=== PATIENT | female | born 1970 | race Caucasian/White ===

== ENCOUNTER → 2017-10-13 | Outpatient (CLI) | payer BC ==
--- NOTE | 2017-10-14 11:16 | BD ---
EXAMINATION TYPE: Axial Bone Density DATE OF EXAM: 10/13/2017 COMPARISON: NONE CLINICAL HISTORY: Height: 5 FT 4 IN Weight: 176 FRAX RISK QUESTIONS: Family History (Parent hip fracture): NO History of Fracture in Adulthood: YES RISK FACTORS HISTORY OF: Active: YES Postmenopausal woman: NOT CONFIRMED ABLASION 2011 MEDICATIONS: Additional Medications: NONE Additional History: EXAM MEASUREMENTS: Bone mineral densitometry was performed using the MyFit System. Bone mineral density as measured about the Lumbar spine is: ----- L1-L4(G/cm2): 1.272 T Score Values are as follows: ----- L2: 0.8 ----- L3: 0.8 ----- L4: 0.3 ----- L1-L4: 0.8 BASELINE Bone mineral density about the R hip (g/cm2): 0.978 Bone mineral density about the L hip (g/cm2): 0.997 T Score values are as follows: -----R Neck: -0.4 -----L Neck: -0.3 -----R Total: 0.0 -----L Total: 0.1 BASELINE IMPRESSION: Normal (Values between +1 and -1 indicate normal bone mass). Consider repeating this study in 5 years or sooner if there is some new clinical indication. NOTE: T-SCORE=SD OF THE YOUNG ADULT MEAN.
== END | disposition home or self-care (01) ==
LOC: RADBDWWP 15:56
PROVIDERS: ATTEND Obstetrics & Gynecology
DX: Z13.820 Encounter for screening for osteoporosis (principal)
CPT/HCPCS: 77080

== ENCOUNTER 2017-11-03 06:55 | Day surgery (SDC) | payer BC ==
[~2017-11-03 06:55] MED LIST: DEXAMETHASONE SOD PHOSPHATE 10 MG/ML 1 ML VIAL IV ONE; LIDOCAINE 1% 20 ML VIAL (10MG/ML) FOR IV START INTRADERMA PRN; MORPHINE SULFATE 2 MG/ML SYRINGE IV PRN; ONDANSETRON 4 MG/2 ML VIAL IVP ONE; Pre Op ABX Message 1 EACH MISC MISCELLANE ONE; SCOPOLAMINE 1.5MG/72HR PATCH TRANSDERM ONE
[2017-11-03] MEDS: LACTATED RINGERS 1,000 ML IV SCH (08:45)
[2017-11-03 08:46] VITALS: RESP 16
[2017-11-03] MEDS ORDERED: PROPOFOL 10 MG/ML 20 ML VIAL IV ONE (09:26)
[2017-11-03] MEDS ORDERED: LIDOCAINE 1% INJ 10MG/ML (20 ML MDV) ONE (09:26)
[2017-11-03] MEDS ORDERED: fentaNYL (PF) 50 MCG/ML 2 ML AMP ONE (09:26)
[2017-11-03] MEDS ORDERED: MIDAZOLAM 2 MG/2 ML VIAL ONE (09:26)
[2017-11-03] MEDS ORDERED: SODIUM CHLORIDE 0.9% 50 ML with GENTAMICIN 80 MG IV ONE ×2 (09:41)
[2017-11-03] MEDS ORDERED: VASOPRESSIN 20 UNIT/ML 1 ML VIAL SQ ONE (09:46)
[2017-11-03] MEDS ORDERED: GENTAMICIN 80 MG in SODIUM CHLORIDE 0.9% 500 ML IRRIGATION ONE (09:48)
[2017-11-03] MEDS ORDERED: BACITRACIN 500 UNIT/GM OINT 28.4 GM TUBE TOPICAL ONE (09:56)
--- NOTE | 2017-11-03 10:13 | P.OP ---
Date of Procedure: 11/03/17 Preoperative Diagnosis: Stress urinary incontinence Postoperative Diagnosis: Same Procedure(s) Performed: Trans-obturator tape with cystoscopy Anesthesia: ESTELA Surgeon: Bill Villegas Estimated Blood Loss (ml): 100 Pathology: none sent Condition: stable Disposition: PACU Indications for Procedure: The patient is a 47-year-old female with documented stress incontinence on physical examination and urodynamics. She comes for a trans-obturator tape Description of Procedure: The patient is brought to the operating suite she is given a general endotracheal anesthesia on the operating table. She's placed lithotomy position with a sterile prep and drape. The labia are sewn laterally to 0 silk. A Champion catheters introduced sterilely. A vaginal speculum was placed. The anterior vaginal mucosa was elevated off the submucosa with 10 mL of the mixture of 20 units of Pitressin and 200 mg of saline. A midline suburethral incision is made. I dissect lateral the bladder neck bilaterally. I then make 2 incisions in the inguinal crease at the level of the clitoris bilaterally. I passed the AP introducers through these incisions into the obturator foramen around the issue pubic ramus into the vaginal space bilaterally. I then remove the Champion and perform cystoscopy to make sure there is no bladder injury and there is none. I reintroduced the Champion. I then attached the grafted introducers and pull the graft back through the obturator foramen. The graft sit nicely in the mid urethra. The plastic sheathing is removed from the graft. The vaginal incisions closed with 3-0 Vicryl. I excised redundant graft at the inguinal incision and close them with 4-0 Vicryl. The urine remains clear. A vaginal packing is placed. The labial stitches removed. The patient is awakened and returned recovery room good condition. Blood loss is a proximally 100 mL.
[2017-11-03] MEDS: KETOROLAC 30 MG/ML 1 ML VIAL IVP PRN (11:13)
[2017-11-03] MEDS: DEXTROSE 5%-0.45% NACL 1,000 ML IV SCH ×2 (11:17→23:06)
[2017-11-03 15:55] VITALS: TEMP 97.9
[2017-11-04] MEDS: LACTATED RINGERS 1,000 ML IV SCH (00:53)
--- NOTE | 2017-11-04 06:49 | P.DS ---
Providers Attending physician: Bill Villegas Primary care physician: [facility] Course: The patient was admitted to the hospital 11/03/2017 for a trans-obturator tape for her stress incontinence. She did well. Her pain was controlled. Her urine is clear this morning. She is comfortable. She is tolerating a regular diet. Her vaginal packing and catheter will be removed. If she voids okay she' ll be discharged home. She'll be given a small prescription of Lindsay for pain. She'll follow-up in the office in one week. Postoperative instructions have been given. She's been instructed to call with any issues. Patient Condition at Discharge: Good Plan - Discharge Summary Discharge Rx Participant: No New Discharge Prescriptions: New HYDROcodone/APAP 5-325MG [Lindsay 5-325] 1 tab PO Q6HR PRN 3 Days #12 tab PRN Reason: Pain No Action Loratadine [Claritin] 10 mg PO DAILY PRN PRN Reason: Allergy Symptoms Turmeric Root Extract [Turmeric] 500 mg PO DAILY Magnesium Oxide 400 mg PO DAILY Cholecalciferol [Vitamin D3] 2,000 unit PO DAILY Michael/D3/Mag11/Zinc/Circuit Recorder/Luis/Bor [Caltrate 600+D Plus Tablet] 2 each PO DAILY Discharge Medication List Michael/D3/Mag11/Zinc/Circuit Recorder/Luis/Bor [Caltrate 600+D Plus Tablet] 2 each PO DAILY [History] Cholecalciferol [Vitamin D3] 2,000 unit PO DAILY 10/27/17 [History] Loratadine [Claritin] 10 mg PO DAILY PRN 10/27/17 [History] Magnesium Oxide 400 mg PO DAILY 10/27/17 [History] Turmeric Root Extract [Turmeric] 500 mg PO DAILY 10/27/17 [History] HYDROcodone/APAP 5-325MG [Lindsay 5-325] 1 tab PO Q6HR PRN 3 Days #12 tab [Rx] Follow up Appointment(s)/Referral(s): Bill Villegas MD [STAFF PHYSICIAN] - 1 Week Discharge Disposition: HOME SELF-CARE
[2017-11-04 08:03] VITALS: BP 108/56; PULSE 70
[2017-11-04] MEDS: KETOROLAC 30 MG/ML 1 ML VIAL IVP PRN (08:25)
== END 2017-11-04 11:30 | disposition home or self-care (01) ==
LOC: OR 06:55 → 3OBS 10:25 → OR 11-04 11:30
PROVIDERS: ATTEND Urology
DX: N39.3 Stress incontinence (female) (male) (principal); E55.9 Vitamin D deficiency, unspecified; G43.909 Migraine, unspecified, not intractable, without status migrainosus; Z79.899 Other long term (current) drug therapy; Z88.1 Allergy status to other antibiotic agents; Z88.0 Allergy status to penicillin; Z87.442 Personal history of urinary calculi; Z87.891 Personal history of nicotine dependence
CPT/HCPCS: 57288; C1771; J2250; J1580; J1100; J2405; J2001; J3010; J1885 ×2; J2704

== ENCOUNTER → 2018-05-18 | Outpatient (CLI) | payer BC ==
[2018-05-18 14:45] LABS: Basophils # (A) 0.1 k/uL (0-0.2); Basophils % (A) 1 %; Eosinophils # (A) 0.3 k/uL (0-0.7); Eosinophils % (A) 4 %; HCT 42.1 % (34.0-46.0); HGB 13.3 gm/dL (11.4-16.0); Lymphocytes # (A) 2.9 k/uL (1.0-4.8); Lymphocytes % (A) 38 %; MCH 29.3 pg (25.0-35.0); MCHC 31.6 g/dL (31.0-37.0); MCV 92.7 fL (80.0-100.0); Mean Platelet Volume 6.4; Monocytes # (A) 0.5 k/uL (0-1.0); Monocytes % (A) 7 %; Neutrophils # (A) 3.7 k/uL (1.3-7.7); Neutrophils % (A) 48 %; Platelet Count 314 k/uL (150-450); RBC 4.54 m/uL (3.80-5.40); RDW 12.8 % (11.5-15.5); WBC 7.7 k/uL (3.8-10.6)
[2018-05-18 15:10] LABS: Appearance,Urine Clear (Clear); Bilirubin,Urine Negative (Negative); Blood,Urine Negative (Negative); Color,Urine Light Yellow; Glucose,Urine (UA) Negative (Negative); Ketones,Urine Negative (Negative); Leukocyte Esterase,Urine Negative (Negative); Nitrite,Urine Negative (Negative); Protein,Urine Negative (Negative); Specific Gravity,Urine 1.007 (1.001-1.035); Urobilinogen,Urine <2.0 mg/dL (<2.0)
[2018-05-18 15:11] LABS: Calcium 9.5 mg/dL (8.4-10.2); Potassium 4.4 mmol/L (3.5-5.1)
== END | disposition home or self-care (01) ==
LOC: LABPAT 14:10
PROVIDERS: ATTEND Urology
DX: Z01.812 Encounter for preprocedural laboratory examination (principal); R31.1 Benign essential microscopic hematuria; N39.3 Stress incontinence (female) (male)
CPT/HCPCS: 36415; 80048; 81003; 85025; 87086

== ENCOUNTER 2018-05-25 07:09 | Day surgery (SDC) | payer BC ==
[2018-05-19 15:13] VITALS: BMI 29.1
--- NOTE | 2018-05-23 10:50 | P.GSHP ---
History of Present Illness H&P Date: 05/23/18 48 yo female with mild altagracia after her TOT in october 2017 . We discussed options of treatment including repeat tot, pvs and periurethral injections with coaptite SHe will get the latter The risks have been discussed - Constitutional Constitutional: Denies chills, Denies fever - EENT Eyes: denies blurred vision, denies pain Ears, nose, mouth and throat: Denies headache, Denies sore throat - Cardiovascular Cardiovascular: Denies chest pain, Denies shortness of breath - Respiratory Respiratory: Denies cough, Denies 7 - Gastrointestinal Gastrointestinal: Denies abdominal pain, Denies diarrhea, Denies nausea, Denies vomiting - Genitourinary (Female) Genitourinary: Denies dysuria, Denies hematuria - Genitourinary (Male) Genitourinary: Denies dysuria, Denies hematuria - Musculoskeletal Musculoskeletal: Denies myalgias - Integumentary Integumentary: Denies pruritus, Denies rash - Neurological Neurological: Denies numbness, Denies weakness - Psychiatric Psychiatric: Denies anxiety, Denies depression - Endocrine Endocrine: Denies fatigue, Denies weight change Past Medical History Additional Past Medical History / Comment(s): migraines, varicose veins, urinary leakage, hx kidney stones History of Any Multi-Drug Resistant Organisms: None Reported Past Surgical History: Adenoidectomy, Breast Surgery, Tonsillectomy, Uterine Ablation Additional Past Surgical History / Comment(s): cyst removed left breast, infected lump removed tonsil area, varicose vein stripping rt leg, D&C, cystoscopy Past Anesthesia/Blood Transfusion Reactions: No Reported Reaction Smoking Status: Former smoker - Past Family History Mother Family Medical History: No Reported History Medications and Allergies Home Medications Medication Instructions Recorded Confirmed Type Loratadine [Claritin] 10 mg PO DAILY 10/27/17 05/19/18 History Omega3/Dha/Epa/Fish Oil/Vit D3 1 each PO DAILY 05/19/18 05/19/18 History [Fish Oil-Vit D3 Softgel] Allergies Allergy/AdvReac Type Severity Reaction Status Date / Time cephalexin [From Keflex] Allergy Dyspnea/skin Verified 05/19/18 15:02 turns red Penicillins Allergy Dyspnea/skin Verified 05/19/18 15:02 turns red Surgical - Exam - General well developed, well nourished - Eyes PERRL - ENT no hearing loss - Neck no masses, no bruits - Respiratory normal expansion, normal respiratory effort - Cardiovascular Rhythm: regular - Abdomen Abdomen: soft, non tender - Genitourinary mild movement and altagracia with cough normal external genitalia, normal perineum - Integumentary no rash, no growths - Neurologic normal coordination, normal sensation - Musculoskeletal normal gait, normal posture - Psychiatric oriented to time, oriented to person, oriented to place, speech is normal, memory intact Assessment and Plan Assessment: Impression: ALTAGRACIA, mild Plan Coaptite perirethral injection
[~2018-05-25 07:09] MED LIST changes: +CLINDAMYCIN 900 MG in DEXTROSE 5% IN WATER 50 ML IVPB ONE; +HYDROmorphone 0.5 MG/0.5 ML SYRINGE IVP PRN; +LACTATED RINGERS 1,000 ML IV SCH; -LIDOCAINE 1% 20 ML VIAL (10MG/ML) FOR IV START INTRADERMA PRN; +MIDAZOLAM 2 MG/2 ML VIAL IV PRN; -MORPHINE SULFATE 2 MG/ML SYRINGE IV PRN; -Pre Op ABX Message 1 EACH MISC MISCELLANE ONE
[2018-05-25] MEDS ORDERED: PROPOFOL 10 MG/ML 20 ML VIAL IV ONE (08:47)
[2018-05-25] MEDS ORDERED: fentaNYL (PF) 50 MCG/ML 2 ML AMP ONE (08:47)
[2018-05-25] MEDS ORDERED: LIDOCAINE 1% INJ 10MG/ML (20 ML MDV) ONE (08:47)
[2018-05-25] MEDS ORDERED: MIDAZOLAM 2 MG/2 ML VIAL ONE (08:47)
--- NOTE | 2018-05-25 09:23 | P.OP ---
Date of Procedure: 05/25/18 Preoperative Diagnosis: Stress urinary incontinence Postoperative Diagnosis: Same Procedure(s) Performed: Cystoscopy with periurethral coaptite injections (3 mL) Anesthesia: ESTELA Surgeon: Bill Villegas Estimated Blood Loss (ml): 0 Pathology: none sent Condition: stable Disposition: PACU Indications for Procedure: The patient is 48. Proximally months ago she underwent trans-obturator tape for stress incontinence. It has control about 90% of her incontinence but she still has a little like to be dry. She come for cystoscopy with coapt tight periurethral injections Description of Procedure: The patient is brought to the operating suite. She's placed on the operating table in a supine position. She's given a successful general anesthetic. She' s placed lithotomy position with sterile prep and drape. Cystoscopy a Foroblique lens and 22-Burmese sheath identifies a normal urethra. The ureteral orifices are normal. The bladder mucosa is unremarkable. With a 20-Burmese cystoscope, 0 lens and [place] obturator I began my coaptite periurethral injections. I injected 1 mL of the coaptite 10:00, 2:00 and 6:00. This completely occludes the urethra. Then the procedure the bladder strain the patient's awakened and returned recovery room in good condition Impression successful. Urethral injections withcoaptite. We will see how she responds to this. She'll be seen in the office in 10 days.
[2018-05-25 09:42] VITALS: TEMP 96.8
[2018-05-25 10:15] VITALS: RESP 18
[2018-05-25 10:44] VITALS: BP 116/76; PULSE 68
== END 2018-05-25 11:02 | disposition home or self-care (01) ==
LOC: OR 07:09
PROVIDERS: ATTEND Urology
DX: N39.3 Stress incontinence (female) (male) (principal); Z79.899 Other long term (current) drug therapy; Z88.1 Allergy status to other antibiotic agents; Z88.0 Allergy status to penicillin
CPT/HCPCS: 81025; 51715; L8606; J2250; J1100; J2405; J2001; J3010; J2704

== ENCOUNTER → 2020-01-18 | Outpatient (CLI) | payer BC ==
--- NOTE | 2020-01-18 10:57 | XR ---
EXAMINATION TYPE: XR KUB DATE OF EXAM: 01/18/2020 COMPARISON: NONE HISTORY: Pain TECHNIQUE: One view abdominal series FINDINGS: The osseous structures are intact. The bowel gas pattern is nonspecific. Surgical clips overlying th e right pubic bone. Calcifications in pelvis are likely vascular. Retained fecal debris throughout th e colon.. IMPRESSION: 1. Nonspecific abdomen. Retained fecal debris limits assessment overlying the kidneys. No obvious re nal stones. Correlate with noncontrast CT as clinically warranted given the limitation of the exam.
== END | disposition home or self-care (01) ==
LOC: RADXRMAIN 10:29
PROVIDERS: ATTEND Urology
DX: K59.09 Other constipation (principal); R14.3 Flatulence
CPT/HCPCS: 74018

== ENCOUNTER → 2020-01-23 | Outpatient (CLI) | payer BC ==
--- NOTE | 2020-01-23 09:04 | CT ---
EXAMINATION TYPE: CT abdomen pelvis wo con DATE OF EXAM: 01/23/2020 HISTORY: Bilateral flank pain with history of renal stones CT DLP: 382.5 mGycm. Automated Exposure Control for Dose Reduction was Utilized. TECHNIQUE: CT scan of the abdomen and pelvis is performed without oral or IV contrast. COMPARISON: Abdominal x-ray 5 days ago. FINDINGS: Within the limitations of a non-contrast study, the following observations are made. LUNG BASES: No significant abnormality is appreciated. LIVER/GB: Gallbladder has fold with dependent small stones and/or sludge suspected axial image 56. No surrounding inflammatory change. PANCREAS: No significant abnormality is seen. SPLEEN: No significant abnormality is seen. ADRENALS: No significant abnormality is seen. KIDNEYS: Right kidney shows roughly 5 calculi measuring up to 3 mm in size. No right-sided hydroneph rosis. Left kidney shows slightly larger calculi with 6-7 scattered calculi measuring up to 4 to 5 mm in size on axial image 29 for reference. In addition there is 6 mm calculus and punctate 2 mm adjace nt calculus in the distal right ureter at UVJ approximately 115 and coronal image 45 not causing sign ificant right-sided hydronephrosis. No left-sided hydronephrosis or obstructing ureteral calculi. Pro minent left-sided pelvic phlebolith noted axial image 111. In retrospect the distal right ureter calc ulus is visualized in the right pelvis. There are additional calcifications inferiorly difficult to l ocalize within bladder or inferior to the bladder (sagittal image 69 and coronal image 40. Largest me asures 16 mm transversely. These correspond to the calcifications near superior aspect of the pubic s ymphysis. I do suspect they are most likely in the bladder as would be atypical location for large ph leboliths. BOWEL: Ingested pills dependently and stomach axial image 24. No suspicious small or large bowel dila tation. Incidental normal-appearing appendix from cecum. GENITAL ORGANS: Anteverted uterus. LYMPH NODES: No greater than 1cm abdominal or pelvic lymph nodes are appreciated. OSSEOUS STRUCTURES: Facet arthropathy lower lumbar levels. OTHER: Surgical clips right groin region redemonstrated. IMPRESSION: 1. Confirmation of bilateral nephrolithiasis seen better on CT versus recent x-ray. In addition there is obstructing 6 mm adjacent to millimeter calculus in the distal right ureter without significant r ight-sided hydronephrosis. There are additional intraluminal calculi suspected in the bladder.
== END | disposition home or self-care (01) ==
LOC: RADCTMAIN 07:21
PROVIDERS: ATTEND Urology
DX: N20.1 Calculus of ureter (principal); N20.0 Calculus of kidney; Z88.0 Allergy status to penicillin; Z88.1 Allergy status to other antibiotic agents
CPT/HCPCS: 74176

== ENCOUNTER 2020-02-14 09:14 | Day surgery (SDC) | payer BC ==
[2020-02-12 14:33] VITALS: BMI 26.2
--- NOTE | 2020-02-13 12:39 | P.GSHP ---
History of Present Illness H&P Date: 02/13/20 49 yo female with a history of kidney stones. She has multiple small painful stones in each kidney. SHe comes for right ureteroscopy with laser lithotripsy.alternatives have been discussed, - Constitutional Constitutional: Denies chills, Denies fever - EENT Eyes: denies blurred vision, denies pain Ears, nose, mouth and throat: Denies headache, Denies sore throat - Cardiovascular Cardiovascular: Denies chest pain, Denies shortness of breath - Respiratory Respiratory: Denies cough, Denies 7 - Gastrointestinal Gastrointestinal: Denies abdominal pain, Denies diarrhea, Denies nausea, Denies vomiting - Genitourinary (Female) Genitourinary: Denies dysuria, Denies hematuria - Genitourinary (Male) Genitourinary: Denies dysuria, Denies hematuria - Musculoskeletal Musculoskeletal: Denies myalgias - Integumentary Integumentary: Denies pruritus, Denies rash - Neurological Neurological: Denies numbness, Denies weakness - Psychiatric Psychiatric: Denies anxiety, Denies depression - Endocrine Endocrine: Denies fatigue, Denies weight change Past Medical History Additional Past Medical History / Comment(s): migraines, varicose veins, urinary leakage, hx kidney stones, states has bulging discs back History of Any Multi-Drug Resistant Organisms: None Reported Past Surgical History: Adenoidectomy, Bladder Surgery, Breast Surgery, Tonsillectomy, Uterine Ablation Additional Past Surgical History / Comment(s): cyst removed left breast, infected lump removed tonsil area, varicose vein stripping rt leg, D&C, cystoscopy, bladder suspension, coptite injection, colonoscopy, epidural injections for pain Past Anesthesia/Blood Transfusion Reactions: No Reported Reaction Smoking Status: Former smoker - Past Family History Mother Family Medical History: No Reported History Medications and Allergies Home Medications Medication Instructions Recorded Confirmed Type Loratadine [Claritin] 10 mg PO DAILY 10/27/17 02/12/20 History Naproxen Sodium 220 mg PO BID 02/12/20 02/12/20 History Allergies Allergy/AdvReac Type Severity Reaction Status Date / Time cephalexin [From Keflex] Allergy Dyspnea/skin Verified 02/12/20 14:26 turns red Penicillins Allergy Dyspnea/skin Verified 02/12/20 14:26 turns red Surgical - Exam - General well developed, well nourished, no distress - Eyes PERRL - ENT no hearing loss - Neck no masses - Respiratory normal expansion, normal respiratory effort - Cardiovascular Rhythm: regular - Abdomen Abdomen: soft, non tender - Integumentary no rash, no growths - Neurologic normal coordination, normal sensation - Musculoskeletal normal gait, normal posture - Psychiatric oriented to time, oriented to person, oriented to place, speech is normal, memory intact Results - Imaging CT scan - abdomen: report reviewed, image reviewed CT scan - pelvis: report reviewed, image reviewed Assessment and Plan Assessment: Impression: RIght renal stones. Plan: Right ureteroscopy with laser lithotripsy,possible stent.
[~2020-02-14 09:14] MED LIST changes: -DEXAMETHASONE SOD PHOSPHATE 10 MG/ML 1 ML VIAL IV ONE; +FAMOTIDINE 20 MG/2 ML VIAL IV PRN; -MIDAZOLAM 2 MG/2 ML VIAL IV PRN; -ONDANSETRON 4 MG/2 ML VIAL IVP ONE; +ONDANSETRON 4 MG/2 ML VIAL IVP PRN; -SCOPOLAMINE 1.5MG/72HR PATCH TRANSDERM ONE
--- NOTE | 2020-02-14 09:55 | XR ---
EXAMINATION TYPE: XR KUB DATE OF EXAM: 02/14/2020 COMPARISON: 01/18/2020 INDICATION: Kidney stone TECHNIQUE: Single view abdomen supine view FINDINGS: There is a normal bowel gas pattern. Moderate fecal debris is throughout the colon. Psoas margins are normal. No organomegaly is present. No discrete renal stones are identified. Phleboliths are within the pelvis. Surgical clips in the rig ht inguinal region IMPRESSION: 1. Moderate fecal retention
[2020-02-14] MEDS ORDERED: LIDOCAINE 1% (10MG/ML) FOR IV START INTRADERMA ONE (10:06)
[2020-02-14] MEDS ORDERED: ONDANSETRON 4 MG/2 ML VIAL ONE (10:11)
[2020-02-14] MEDS ORDERED: fentaNYL (PF) 50 MCG/ML 2 ML AMP ONE (10:45)
[2020-02-14] MEDS ORDERED: SUCCINYLCHOLINE CHLORIDE 100 MG/5 ML SYR IV ONE (10:45)
[2020-02-14] MEDS ORDERED: PROPOFOL 10 MG/ML 20 ML VIAL IV ONE (10:45)
[2020-02-14] MEDS ORDERED: LIDOCAINE 1% INJ 10MG/ML (20 ML MDV) ONE (10:45)
[2020-02-14] MEDS ORDERED: MIDAZOLAM 2 MG/2 ML VIAL ONE (10:45)
--- NOTE | 2020-02-14 12:07 | P.OP ---
Date of Procedure: 02/14/20 Preoperative Diagnosis: Right renal and ureteral calculus Postoperative Diagnosis: Same Procedure(s) Performed: Cystoscopy, right ureteroscopy laser lithotripsy, right ureteral renoscopy with laser lithotripsy Anesthesia: ESTELA Surgeon: Bill Villegas Estimated Blood Loss (ml): 0 Pathology: other Condition: stable (Stone) Disposition: PACU Indications for Procedure: The patient is 49. She has a history of stones. She presented recently. She has 3 or 4 renal stones on the right as well as on the left and in retrospect a right distal ureteral stone. She comes for right ureteral stone manipulation with laser lithotripsy. Description of Procedure: The patient is brought to the operating suite. She is given a general anesthetic. She's placed lithotomy position with sterile prep and drape. Cystoscopy Foroblique lens and 21-Barbadian sheath identifies a normal urethra. The ureteral orifices are normal. The bladder mucosa is unremarkable. I attempted to pass an 035 wire up the ureter but meet resistance due to the distal ureteral stone. I passed the semirigid scope into the right distal ureter and identify the stone. With the 275 probe the stone was broken into tiny pieces and flushed out of the ureter. I then through the ureteroscope passed an 035 wire up into the kidney. I removed the ureteroscope and over the wires pass a 40-19-[id number] reentry sheath. The inner sheath is removed. I passed the flexible ureteroscope up to the right kidney. Through the flexible ureteroscope I inspect each calyx. Several small stones are identified. With the 275 probe these right renal stones are broken into tinier pieces. The stone basket I basket the larger fragments. At the end of the procedure there no remaining right renal stones. The right ureter is inspected upon removal of the scope and see no remaining stones up. There is not enough edema to leave a double-J catheter. The bladder strain stone fragments are collected and sent to pathology. The patient is awakened and returned recovery room good condition. Impression successful right ureteral and right renal stone extraction with laser lithotripsy and stone basketing. The patient be discharged home upon recovery and found the office in one week.
[2020-02-14 12:18] VITALS: TEMP 97.5
[2020-02-14 12:24] VITALS: RESP 16
[2020-02-14 13:26] VITALS: BP 140/75; PULSE 54
--- NOTE | 2020-02-14 13:32 | FL ---
EXAMINATION TYPE: FL guidance operating room DATE OF EXAM: 02/14/2020 CLINICAL HISTORY: Right-sided kidney stone. TECHNIQUE: Fluoroscopy. COMPARISON: Abdominal x-ray earlier today.. FINDINGS: Fluoroscopic guidance was provided during right kidney stone treatment procedure performed by Dr. Villegas. A total of 9 seconds of fluoroscopic time was utilized during the procedure and singl e spot fluoroscopic intraoperative image is acquired. Single image acquired shows right ureter cathet er advancing towards collecting system for stone retrieval. IMPRESSION: As Above.
== END 2020-02-14 13:30 | disposition home or self-care (01) ==
LOC: OR 09:14
PROVIDERS: ATTEND Urology
DX: N20.2 Calculus of kidney with calculus of ureter (principal); M51.9 Unspecified thoracic, thoracolumbar and lumbosacral intervertebral disc disorder; Z88.1 Allergy status to other antibiotic agents; Z88.0 Allergy status to penicillin; Z87.442 Personal history of urinary calculi; Z86.69 Personal history of other diseases of the nervous system and sense organs; Z86.79 Personal history of other diseases of the circulatory system; Z87.448 Personal history of other diseases of urinary system; Z90.49 Acquired absence of other specified parts of digestive tract; Z98.890 Other specified postprocedural states; Z90.89 Acquired absence of other organs; Z86.19 Personal history of other infectious and parasitic diseases; Z87.891 Personal history of nicotine dependence; Z79.899 Other long term (current) drug therapy; Z79.1 Long term (current) use of non-steroidal anti-inflammatories (NSAID)
CPT/HCPCS: 82365; 74018; 52353; C1769; J2250; J2405; J2001; J3010; J0330; J2704

== ENCOUNTER → 2021-11-25 | Outpatient (CLI) | payer BC ==
--- NOTE | 2021-11-26 04:47 | US ---
EXAMINATION TYPE: US st tissue neck DATE OF EXAM: 11/25/2021 COMPARISON: NONE CLINICAL HISTORY: 51-year-old female R22.1 LUMP IN LEFT NECK. Left neck palpable lump x 1 week TECHNIQUE AND FINDINGS: [employer] Manager notes: Left neck at patient's area of concern: 2 small hypoechoic vascular areas seen stevie suring 1.1 x 0.4 x 0.5cm and 1.5 x 0.4 x 0.6cm, probable lymph nodes. IMPRESSION: Targeted scanning along the left neck corresponding to the patient's palpable site shows 2 nonenlarge d lymph nodes measuring up to 6 mm short axis. These are likely reactive or postinflammatory. Clinica l follow-up can be performed. If any progressive enlargement, the area can be rescanned. If any suspi cious clinical features develop, contrast-enhanced CT of the neck can be considered.
== END | disposition home or self-care (01) ==
LOC: RADUSWWP 12:03
PROVIDERS: ATTEND Family Medicine
DX: R22.1 Localized swelling, mass and lump, neck (principal)
CPT/HCPCS: 76536

== ENCOUNTER → 2023-10-13 | Outpatient (CLI) | payer BC ==
--- NOTE | 2023-10-18 23:57 | XR ---
EXAMINATION TYPE: XR KUB DATE OF EXAM: 10/13/2023 Comparison: 02/14/2020 Clinical History: 53-year-old female N20.0 CALCULUS KIDNEY Findings: Moderate stool burden. Gassy small bowel loops. Bowel content largely obscures the renal shadows. Rajendra gical clips at the right groin region. Left-sided pelvic phlebolith. Impression: Bowel content largely obscures the renal shadows. Moderate overall stool burden. Small left-sided pel melody phlebolith.
== END | disposition home or self-care (01) ==
LOC: RADXRMAIN 16:36
PROVIDERS: ATTEND Urology
DX: N20.0 Calculus of kidney (principal); I87.8 Other specified disorders of veins
CPT/HCPCS: 74018